=== PATIENT | female | born 1950 | race Caucasian/White ===

== ENCOUNTER 2017-10-23 10:28 | Outpatient (CLI) | payer MEDICARE, OTHER ==
[2017-10-23 11:37] LABS: eGFR (African) > 60; eGFR (Non-African) > 60
== END 2017-10-23 13:27 ==
LOC: LAB 10:28
PROVIDERS: ATTEND Family Medicine
DX: E03.9 Hypothyroidism, unspecified (principal); E11.9 Type 2 diabetes mellitus without complications
CPT/HCPCS: 36415; 80053; 80061; 83036; 84443

== ENCOUNTER 2018-01-20 09:45 | Outpatient (CLI) | payer MEDICARE, OTHER | END 2018-01-20 09:46 | LOC: LAB 09:45 | PROVIDERS: ATTEND Family Medicine | DX: E11.9 Type 2 diabetes mellitus without complications (principal) | CPT/HCPCS: 83036 ==

== ENCOUNTER 2018-04-21 11:06 | Outpatient (CLI) | payer MEDICARE, OTHER | END 2018-04-21 11:25 | LOC: LAB 11:06 | PROVIDERS: ATTEND Family Medicine | DX: E11.9 Type 2 diabetes mellitus without complications (principal) | CPT/HCPCS: 36415; 83036 ==

== ENCOUNTER 2018-07-21 10:35 | Outpatient (CLI) | payer MEDICARE, OTHER | END 2018-07-21 10:36 | LOC: LAB 10:35 | PROVIDERS: ATTEND Family Medicine | DX: E11.9 Type 2 diabetes mellitus without complications (principal) | CPT/HCPCS: 36415; 83036 ==

== ENCOUNTER 2018-11-20 11:05 | Outpatient (CLI) | payer MEDICARE, OTHER ==
[2018-11-20 12:25] LABS: eGFR (Non-African) > 60
[2018-11-20 12:26] LABS: HDL 62 mg/dL (>40)
[2018-11-21 10:53] LABS: A1C 6.2 % (<5.7)
== END 2018-11-20 11:07 ==
LOC: LAB 11:05
PROVIDERS: ATTEND Family Medicine
DX: E03.9 Hypothyroidism, unspecified (principal)
CPT/HCPCS: 36415; 80053; 80061; 83036; 84443; 87086